=== PATIENT | female | born 1935 | race Caucasian/White ===

== ENCOUNTER 2021-11-05 12:05 | Inpatient (IN) | payer OTHER ==
[~2021-11-05] VITALS: Ht 162.6 cm; Wt 61.2 kg
[~2021-11-05 12:05] MED LIST: NORCO 7.5-3251 EACH PO; PREDNISONE 20 M20 MG PO
[2021-11-05 14:27] LABS: HEMOGLOBIN 13.2 gm/dl (12.3-15.3); RED BLOOD COUNT 4.31 M/UL (4.00-5.10)
[2021-11-06 10:35] LABS: HEMOGLOBIN 12.4 gm/dl (12.3-15.3); RED BLOOD COUNT 4.09 M/UL (4.00-5.10); WHITE BLOOD COUNT 9.9 K/UL (4.5-11.0)
[2021-11-06] MEDS ORDERED: HYDROCODON-ACE1 EAC6 PO (13:34)
[2021-11-06] MEDS ORDERED: ELIQUIS 2.5 MG2.5 MG GT (13:34)
[2021-11-06] MEDS ORDERED: ZOFRAN 4 MG TAB4 MG PO (13:34)
[2021-11-07 06:48] LABS: HEMOGLOBIN 10.8 gm/dl (12.3-15.3); WHITE BLOOD COUNT 12.2 K/UL (4.5-11.0)
[2021-11-07 06:50] LABS: RED BLOOD COUNT 3.54 M/UL (4.00-5.10)
[2021-11-08 05:09] LABS: HEMOGLOBIN 9.3 gm/dl (12.3-15.3); WHITE BLOOD COUNT 9.4 K/UL (4.5-11.0)
[2021-11-08 05:11] LABS: RED BLOOD COUNT 3.06 M/UL (4.00-5.10)
[2021-11-09 07:17] LABS: HEMOGLOBIN 8.2 gm/dl (12.3-15.3); RED BLOOD COUNT 2.81 M/UL (4.00-5.10)
[2021-11-09 07:22] LABS: WHITE BLOOD COUNT 6.7 K/UL (4.5-11.0)
[2021-11-10 07:06] LABS: HEMOGLOBIN 8.7 gm/dl (12.3-15.3); RED BLOOD COUNT 2.88 M/UL (4.00-5.10); WHITE BLOOD COUNT 6.8 K/UL (4.5-11.0)
[2021-11-11 07:59] LABS: HEMOGLOBIN 8.4 gm/dl (12.3-15.3); RED BLOOD COUNT 2.74 M/UL (4.00-5.10); WHITE BLOOD COUNT 5.3 K/UL (4.5-11.0)
[2021-11-12 05:41] LABS: HEMOGLOBIN 8.9 gm/dl (12.3-15.3); RED BLOOD COUNT 2.98 M/UL (4.00-5.10)
[2021-11-12 05:45] LABS: WHITE BLOOD COUNT 6.8 K/UL (4.5-11.0)
[2021-11-13 20:13] LABS: HEMOGLOBIN 8.9 gm/dl (12.3-15.3); RED BLOOD COUNT 2.98 M/UL (4.00-5.10); WHITE BLOOD COUNT 6.2 K/UL (4.5-11.0)
[2021-11-14 06:18] LABS: HEMOGLOBIN 9.2 gm/dl (12.3-15.3); RED BLOOD COUNT 3.08 M/UL (4.00-5.10); WHITE BLOOD COUNT 5.3 K/UL (4.5-11.0)
[2021-11-15 06:59] LABS: HEMOGLOBIN 8.3 gm/dl (12.3-15.3); RED BLOOD COUNT 2.83 M/UL (4.00-5.10); WHITE BLOOD COUNT 5.8 K/UL (4.5-11.0)
[2021-11-16 07:40] LABS: HEMOGLOBIN 8.8 gm/dl (12.3-15.3); RED BLOOD COUNT 3.03 M/UL (4.00-5.10); WHITE BLOOD COUNT 6.3 K/UL (4.5-11.0)
== END 2021-11-18 16:21 | disposition home health service (06) | DRG 522 ==
LOC: ER1 12:05 → M/S 16:05 → CDU 16:05 → M/S 17:33
PROVIDERS: Internal Medicine Infectious Disease; Nurse Practitioner; Orthopaedic Surgery; Physician Assistant; Physician Assistant Medical; ADMIT Internal Medicine
PROC: 0SRR01Z Replacement of Right Hip Joint, Femoral Surface with Metal Synthetic Substitute, Open Approach (ICD-10-PCS; principal; 2021-11-06 13:15)
DX: S72.011A Unspecified intracapsular fracture of right femur, initial encounter for closed fracture (principal); J98.11 Atelectasis; D62 Acute posthemorrhagic anemia; N17.9 Acute kidney failure, unspecified; I10 Essential (primary) hypertension; W10.8XXA Fall (on) (from) other stairs and steps, initial encounter; R91.1 Solitary pulmonary nodule; K44.9 Diaphragmatic hernia without obstruction or gangrene; Z90.710 Acquired absence of both cervix and uterus; Z88.0 Allergy status to penicillin; Z82.49 Family history of ischemic heart disease and other diseases of the circulatory system; K59.00 Constipation, unspecified; R79.89 Other specified abnormal findings of blood chemistry
CPT/HCPCS: 36415; 70450; 71045; 72125; 73502; 73560; 76000; 80048; 80053; 81001; 83605; 83735; 85025; 85027; 85610; 85730; 86850; 86900; 86901; 87040; 96374; 96375; 97110; 97110-GP-CQ; 97116; 97116-GP-CQ; 97162; 97165; 97530; 97530-GP-CQ; 97535; 99285; C1776; J0690; J1100; J1170; J1200; J1335; J1885; J2270; J2405; J2550; J2704; J2795; J3010; J3370; J7030; J7120; Q9965; U0002

== ENCOUNTER 2022-01-08 06:06 | Emergency (ER) | payer OTHER ==
[~2022-01-08] VITALS: Ht 162.6 cm; Wt 60.8 kg
[~2022-01-08 06:06] MED LIST changes: +ELIQUIS 2.5 MG2.5 MG GT; +HYDROCODON-ACE1 EAC6 PO; +ZOFRAN 4 MG TAB4 MG PO
[2022-01-08 06:40] LABS: HEMOGLOBIN 12.7 gm/dl (12.3-15.3); RED BLOOD COUNT 4.33 M/UL (4.00-5.10); WHITE BLOOD COUNT 16.4 K/UL (4.5-11.0)
[2022-01-08 07:05] LABS: BUN/CREATININE RATIO 15 (0-10)
== END 2022-01-08 15:40 | disposition home or self-care (01) ==
LOC: ER1 06:06
PROVIDERS: Student in an Organized Health Care Education/Training Program
DX: U07.1 COVID-19 (principal); I10 Essential (primary) hypertension
CPT/HCPCS: 71045; 80048; 82550; 82553; 84484; 85025; 85379; 93005; 99285; M0247; Q9967; U0002